=== PATIENT | female | born 2000 | race Caucasian/White ===

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

== ENCOUNTER 2022-05-11 17:54 | Emergency (ER) | payer BC, OTHER, SELFPAY ==
--- NOTE | 2022-05-11 19:37 | PC.NURSE ---
No Response when called for triage at this time.
--- NOTE | 2022-05-11 19:53 | PC.NURSE ---
Pt called again at this time for triage with no response at this time.
--- NOTE | 2022-05-11 19:55 | PC.NURSE ---
no answer fro triage x2
== END 2022-05-11 19:37 | disposition left against medical advice (07) ==
PROVIDERS: PCP Family Medicine
DX: Z53.21 Procedure and treatment not carried out due to patient leaving prior to being seen by health care provider (principal)
CPT/HCPCS: 99199

== ENCOUNTER 2022-12-14 10:52 | Emergency (ER) | payer BC, OTHER, SELFPAY ==
[2022-12-14 11:06] VITALS: BP 153/70; PULSE 80; RESP 16; TEMP 36.8; O2SAT 99
--- NOTE | 2022-12-14 11:55 | ED.ABDPAIN ---
HPI - Abdominal Pain General Chief Complaint: Abdominal Pain Stated Complaint: Abdominal Pain Source: patient Mode of arrival: ambulatory Limitations: no limitations History of Present Illness HPI narrative: Patient presents for evaluation of nausea, vomiting, diarrhea with symptom onset this morning. She indicates she ate some uncooked pork at work last night and believes her symptoms are related to this. She has experienced hot flashes and abdominal cramping. Denies any blood or mucus in the stool, objective fever, urinary symptoms, vaginal bleeding or discharge. No recent sick contacts to her knowledge. She does not consume alcohol. No additional complaints or concerns. Related Data Allergies Allergy/AdvReac Type Severity Reaction Status Date / Time amoxicillin [From Augmentin] Allergy Mild Hives Verified 12/08/22 09:10 clavulanic acid Allergy Mild Hives Verified 12/08/22 09:10 [From Augmentin] ibuprofen Allergy Mild Ulcers Verified 12/08/22 09:10 cephalexin Allergy Unknown RASH Verified 12/08/22 09:10 Review of Systems Review of Systems: CONSTITUTIONAL:Reports hot flashes. Denies objective fever, chills, or sweats. EYES: Denies visual changes, redness, or discharge. ENT: Denies rhinorrhea, congestion, sore throat, or otalgia. CARDIOVASCULAR: Denies chest pain, palpitations, or edema. RESPIRATORY: Denies cough or dyspnea. GASTROINTESTINAL: Reports abdominal cramping, nausea, vomiting, diarrhea. GENITOURINARY: Denies dysuria or hematuria. SKIN: Denies rash or itching. MUSCULOSKELETAL: Denies back pain, joint pain, or myalgia. NEUROLOGIC: Denies headache, numbness, dizziness, or weakness. PSYCHIATRIC: Denies anxiety or depression. [facility] Past Medical History Medical History BMI greater than 30 Diarrhea History of depression History of gastroesophageal reflux (GERD) Surgical History Surgical History History of tonsillectomy and adenoidectomy History of wisdom tooth extraction Family History Family History Father Hypertension Mother No problems noted. Sibling No problems noted. Social History Social History Smoking status: Never smoker Second hand tobacco smoke exposure: Yes Alcohol intake: never Substance use: current Substance use type: marijuana Lack of Transportation: No Lack of Food: Never True Current Housing: I Have Housing Concerned About Future Housing: No Difficulty Paying Gas/Electric Bills: No Difficulty Paying for Meds: No Currently Unemployed: Decline to Answer Education: High School Diploma/GED Difficulty w/ Childcare or Family Care: No Living arrangements: with family Occupation/Education: unemployed Gender identity (if verbalized by the patient): Female Sexual Orientation (if Verbalized by the Patient): Straight or Heterosexual Spiritual care concerns: No Exam Narrative: GENERAL: Well-appearing, well-nourished, and in no acute distress. HEAD: Normocephalic, atraumatic. EYES: PERRLA and EOMI. ENT: Nares clear, no rhinorrhea or epistaxis. Mucous membranes moist. Oropharynx without tonsillar hypertrophy exudate or other lesions. Bilateral TMs pearly russell nonbulging NECK: Supple. No adenopathy or masses. No carotid bruits or JVD CHEST: Clear to auscultation. No respiratory distress. No wheezes rales or rhonchi HEART: Regular rate and rhythm. No murmur heard. Normal peripheral pulses. ABDOMEN: Soft, nontender, nondistended, normal active bowel sounds. EXTREMITIES: Normal range of motion. No edema. SKIN: Warm, dry, no rash. NEURO: No focal deficits. Alert and oriented x3. PSYCH: Normal mood and affect. Course Course Emergency Course: This is a 22-year-old female who presented for e
== END 2022-12-14 12:00 | disposition home or self-care (01) ==
PROVIDERS: Emergency Provider Nurse Practitioner
DX: R11.2 Nausea with vomiting, unspecified (principal); R19.7 Diarrhea, unspecified; F12.90 Cannabis use, unspecified, uncomplicated; K21.9 Gastro-esophageal reflux disease without esophagitis
CPT/HCPCS: 99213; G0463

== ENCOUNTER 2023-01-19 17:59 | Emergency (ER) | payer BC, SELFPAY ==
--- NOTE | ~2023-01-19 | XR_ITS ---
EXAMINATION: XR chest 2V Exam Date/Time: 01/19/2023 18:25 [employer] HISTORY: COVID POSITIVE Comparison: 02/24/2021. RESULT: Lines, tubes, and devices: None. Lungs and pleura: Clear. Cardiomediastinal silhouette: Stable. Other: No acute osseous or upper abdominal finding. IMPRESSION: No acute cardiopulmonary process. Reviewed, dictated and finalized at location K. [employer]
--- NOTE | 2023-01-19 18:10 | ED.URI ---
HPI - URI/Sore Throat General Chief Complaint: Upper Respiratory Infection Stated Complaint: Chest Pain/Cough Time Seen by Provider: 01/19/23 18:10 Source: patient Mode of arrival: ambulatory Limitations: no limitations History of Present Illness HPI Narrative: Isaura is a 22-year-old female patient presenting to the clinic today with complaints of chest discomfort when coughing, shortness of breath, fever, chills, body aches, and headache. She reports symptoms started yesterday. Has taken Tylenol. Denies any sore throat. MD elicited complaint: fever, cough, nasal congestion and other (Headache) Related Data Home Medications Medication Instructions Recorded Confirmed levonorgestrel 120 mcg-e.estradiol 1 patch topical WEEKLY 01/19/23 01/19/23 30 mcg/24 hr weekly transderm patch (Twirla) spironolactone 100 mg tablet 100 mg PO DAILY 01/19/23 01/19/23 Allergies Allergy/AdvReac Type Severity Reaction Status Date / Time amoxicillin [From Augmentin] Allergy Mild Hives Verified 01/19/23 18:25 clavulanic acid Allergy Mild Hives Verified 01/19/23 18:25 [From Augmentin] ibuprofen Allergy Mild Ulcers Verified 01/19/23 18:25 cephalexin Allergy Unknown RASH Verified 01/19/23 18:25 Review of Systems Review of Systems: Pertinent positives per HPI. Patient denies any rash, visual changes, dizziness, palpitations, nausea, vomiting, diarrhea, constipation, abdominal pain, or any urinary issues. [facility] Past Medical History Medical History BMI greater than 30 Diarrhea History of depression History of gastroesophageal reflux (GERD) Surgical History Surgical History History of tonsillectomy and adenoidectomy History of wisdom tooth extraction Family History Family History Father Hypertension Mother No problems noted. Sibling No problems noted. Social History Social History Smoking status: Never smoker Second hand tobacco smoke exposure: Yes Alcohol intake: never Substance use: current Substance use type: marijuana Lack of Transportation: No Lack of Food: Never True Current Housing: I Have Housing Concerned About Future Housing: No Difficulty Paying Gas/Electric Bills: No Difficulty Paying for Meds: No Currently Unemployed: Decline to Answer Education: High School Diploma/GED Difficulty w/ Childcare or Family Care: No Living arrangements: with family Occupation/Education: unemployed Gender identity (if verbalized by the patient): Female Sexual Orientation (if Verbalized by the Patient): Straight or Heterosexual Spiritual care concerns: No Comments At the time of my signature, I reviewed and agree with the nursing past medical, surgical, social, and family history. There is no relevant family history pertinent to the patient complaint. Exam Narrative: General: Well-developed, well nourished, in no apparent distress Head: Normocephalic, atraumatic Eyes: Pupils equally round and reactive to light bilaterally, EOM intact, sclera and conjunctive clear, no discharge, lids normal Ears: TMs intact and clear, ear canals clear, no drainage, grossly hearing normal. Nose: Nares patent, clear nasal discharge, no inflammation, no sinus tenderness. Mouth: Oral pharynx without lesions or masses, good dentition, MMM. Neck: Supple, trachea midline, no enlargement of anterior or posterior cervical nodes, no thyroid masses or goiter palpable. Cardio: Regular rate and rhythm, s1 and s2 normal, no murmur appreciated. Resp: Clear to auscultation bilaterally, no rhonchi, rales, wheezing or rubs Course Course Emergency Course: Portions of this record may have been created with voice recognition software. Level of Care: Express
[2023-01-19 18:13] VITALS: BP 134/77; PULSE 98; RESP 20; TEMP 36.8; O2SAT 98
== END 2023-01-19 18:40 | disposition home or self-care (01) ==
PROVIDERS: Emergency Provider Nurse Practitioner Family; PCP Family Medicine
DX: U07.1 COVID-19 (principal); K21.9 Gastro-esophageal reflux disease without esophagitis; F32.A Depression, unspecified
CPT/HCPCS: 71046; 87081; 87426; 87804; 87880; 99213; C9803; G0463

== ENCOUNTER 2023-04-18 18:56 | Emergency (ER) | payer BC, SELFPAY ==
[2023-04-18 19:10] VITALS: BP 129/73; PULSE 98; RESP 18; TEMP 37.5; O2SAT 100
[2023-04-18 19:23] VITALS: BP 129/73; PULSE 98; RESP 18; TEMP 37.5; O2SAT 100
--- NOTE | 2023-04-18 19:25 | ED.GENADULT ---
HPI - General Adult General Chief complaint: Upper Respiratory Infection Stated complaint: Fever/Cough/Headache/Chills Source: patient, RN notes reviewed and old records reviewed Mode of arrival: ambulatory Limitations: no limitations History of Present Illness HPI narrative: 23-year-old female presents to [facility] with complaints cough, congestion, fatigue, myalgias that started yesterday. Patient taking [id number] medications with no relief. Patient denies sore throat, chest pain, shortness of breath. Related Data Home Medications Medication Instructions Recorded Confirmed No Home Medications 04/18/23 04/18/23 Allergies Allergy/AdvReac Type Severity Reaction Status Date / Time amoxicillin [From Augmentin] Allergy Mild Hives Verified 04/13/23 13:46 clavulanic acid Allergy Mild Hives Verified 04/13/23 13:46 [From Augmentin] ibuprofen Allergy Mild Ulcers Verified 04/13/23 13:46 cephalexin Allergy Unknown RASH Verified 04/13/23 13:46 Review of Systems Constitutional: Constitutional: Reports no additional constitutional complaints, Reports body ache(s), Denies chills, Reports fatigue, Reports fever(s) and Denies headache(s) Eyes: Eyes: Reports no additional eye complaints and Denies blurry vision ENT: Reports system reviewed and no additional complaints, except as documented, Denies vertigo, Denies dizziness, Denies ear discharge, Denies otalgia, Denies facial pain, Denies headache(s), Reports nasal congestion, Denies nasal discharge, Denies sinus pain, Denies sinus pressure and Denies sore throat Cardiovascular: Cardiovascular: Reports no additional cardiovascular complaints, Denies chest pain, Denies chest pain at rest, Denies rapid heart rate and Denies dyspnea Respiratory: Respiratory: Reports no additional respiratory complaints, Reports chest congestion, Reports cough, Denies pain on inspiration, Denies pain with cough and Denies dyspnea Gastrointestinal: Gastrointestinal: Denies abdominal pain, Denies diarrhea, Denies nausea and Denies vomiting Integumentary/Breasts: Skin/Breast: Denies rash Neurologic: Reports system reviewed and no additional complaints, except as documented, Denies vertigo, Denies dizziness and Denies headache(s) Endocrine: Endocrine: Denies fatigue PMF Past Medical History Medical History BMI greater than 30 Diarrhea History of depression History of gastroesophageal reflux (GERD) Surgical History Surgical History History of tonsillectomy and adenoidectomy History of wisdom tooth extraction Family History Family History Father Hypertension Mother No problems noted. Sibling No problems noted. Social History Social History Smoking status: Never smoker Second hand tobacco smoke exposure: Yes Alcohol intake: never Substance use: current Substance use type: marijuana Lack of Transportation: No Lack of Food: Never True Current Housing: I Have Housing Concerned About Future Housing: No Difficulty Paying Gas/Electric Bills: No Difficulty Paying for Meds: No Currently Unemployed: Decline to Answer Education: High School Diploma/GED Difficulty w/ Childcare or Family Care: No Living arrangements: with family Occupation/Education: unemployed Gender identity (if verbalized by the patient): Female Sexual Orientation (if Verbalized by the Patient): Straight or Heterosexual Spiritual care concerns: No Comments At the time of my signature, I reviewed and agree with the nursing past medical, surgical, social, and family history. There is no relevant family history pertinent to the patient complaint. Exam Const: General: cooperative, no acute distress, ill appearing acutely and well nourished Nutritio
== END 2023-04-18 19:40 | disposition home or self-care (01) ==
PROVIDERS: Emergency Provider Registered Nurse; PCP Family Medicine
DX: J10.1 Influenza due to other identified influenza virus with other respiratory manifestations (principal); F12.90 Cannabis use, unspecified, uncomplicated; K21.9 Gastro-esophageal reflux disease without esophagitis
CPT/HCPCS: 99211; G0463

== ENCOUNTER 2023-09-06 18:50 | Emergency (ER) | payer BC, SELFPAY ==
[2023-09-06 19:00] VITALS: BP 141/76; PULSE 71; RESP 20; TEMP 36.5; O2SAT 100
[2023-09-06 19:16] LABS: EDUAAPPEAR Cloudy; EDUABILI Negative; EDUABLOOD 2+; EDUACOLOR1 Yellow; EDUAGLUCOSE Negative; EDUAKETONE Negative; EDUALEUKO 1+; EDUANITRATE Negative; EDUAPROTEIN 1+; EDUASPGRAVITY 1.025; EDUAUROBILI 0.2
--- NOTE | 2023-09-06 19:26 | ED.GENADULT ---
HPI - General Adult General Chief complaint: Urogenital-Female Stated complaint: poss uti Source: patient Mode of arrival: ambulatory Limitations: no limitations History of Present Illness HPI narrative: Patient presents for evaluation of urinary symptoms since yesterday. Symptoms include dysuria, urinary frequency, hesitancy, incomplete emptying,, nausea and vomiting. No fever, chills, low back pain, abdominal pain. LMP 08/14/2023. Not on contraception. She is sexually active with men. Denies any vaginal bleeding or discharge. Related Data Allergies Allergy/AdvReac Type Severity Reaction Status Date / Time amoxicillin [From Augmentin] Allergy Mild Hives Verified 09/06/23 18:51 clavulanic acid Allergy Mild Hives Verified 09/06/23 18:51 [From Augmentin] ibuprofen Allergy Mild Ulcers Verified 09/06/23 18:51 cephalexin Allergy Unknown RASH Verified 09/06/23 18:51 Review of Systems Review of Systems: CONSTITUTIONAL: Denies fever, chills, or sweats. EYES: Denies visual changes, redness, or discharge. ENT: Denies rhinorrhea, congestion, sore throat, or otalgia. CARDIOVASCULAR: Denies chest pain, palpitations, or edema. RESPIRATORY: Denies cough or dyspnea. GASTROINTESTINAL: Reports nausea and vomiting. Denies abdominal pain and diarrhea. GENITOURINARY: Reports urinary frequency, urgency, hesitancy, incomplete emptying, and dysuria. Denies vaginal bleeding or discharge SKIN: Denies rash or itching. MUSCULOSKELETAL: Denies back pain, joint pain, or myalgia. NEUROLOGIC: Denies headache, numbness, dizziness, or weakness. PSYCHIATRIC: Denies anxiety or depression. [facility] Past Medical History Medical History BMI greater than 30 Diarrhea History of depression History of gastroesophageal reflux (GERD) Surgical History Surgical History History of tonsillectomy and adenoidectomy History of wisdom tooth extraction Family History Family History Father Hypertension Mother No problems noted. Sibling No problems noted. Social History Social History Smoking status: Never smoker Second hand tobacco smoke exposure: Yes Alcohol intake: never Substance use: current Substance use type: marijuana Lack of Transportation: No Lack of Food: Never True Current Housing: I Have Housing Concerned About Future Housing: No Difficulty Paying Gas/Electric Bills: No Difficulty Paying for Meds: No Currently Unemployed: Decline to Answer Education: High School Diploma/GED Difficulty w/ Childcare or Family Care: No Living arrangements: with family Occupation/Education: unemployed Gender identity (if verbalized by the patient): Female Sexual Orientation (if Verbalized by the Patient): Straight or Heterosexual Spiritual care concerns: No Exam Narrative: GENERAL: Well-appearing, well-nourished, and in no acute distress. HEAD: Normocephalic, atraumatic. EYES: PERRLA and EOMI. ENT: Nares clear, no rhinorrhea or epistaxis. Mucous membranes moist. Oropharynx without tonsillar hypertrophy exudate or other lesions. Bilateral TMs pearly russell nonbulging NECK: Supple. No adenopathy or masses. No carotid bruits or JVD CHEST: Clear to auscultation. No respiratory distress. No wheezes rales or rhonchi HEART: Regular rate and rhythm. No murmur heard. Normal peripheral pulses. ABDOMEN: Soft, nontender, nondistended, normal active bowel sounds. BACK: No CVA tenderness EXTREMITIES: Normal range of motion. No edema. SKIN: Warm, dry, no rash. NEURO: No focal deficits. Alert and oriented x3. PSYCH: Normal mood and affect. Course Course Emergency Course: This is a 23-year-old female who presented for evaluation of urinary symptoms. She had 1+ leukocyte
[2023-09-06] MEDS: ONDANSETRON HCL ODT 4 MG TABLET PO (19:32)
== END 2023-09-06 19:54 | disposition home or self-care (01) ==
PROVIDERS: Emergency Provider Nurse Practitioner; PCP Family Medicine
DX: N39.0 Urinary tract infection, site not specified (principal); B95.7 Other staphylococcus as the cause of diseases classified elsewhere; K21.9 Gastro-esophageal reflux disease without esophagitis
CPT/HCPCS: 81003; 81025; 87086; 99213; A9270; G0463